=== PATIENT | male | born 1950 | race Caucasian/White ===

== ENCOUNTER 2019-10-14 08:30 | Day surgery (SDC) | payer OTHER ==
[~2019-10-14] VITALS: Ht 170.2 cm; Wt 92.9 kg
[~2019-10-14 08:30] MED LIST: ASPI81TA85 PO; BUPR10TASR PO; FENO145T7 PO; HYDR25TAB PO; IBUP1TAB7 PO; LR 1,000 ML IV SCH; LevoFLOXacin IV 500 MG in IV 1 EA IV ONE; METO50TA7 PO; OMEP1CAP73 PO; PROV108A INH; SIMV40TA20 PO; VITA200012 PO
[2019-10-14] MEDS ORDERED: ONDANSETRON 4MG/2ML VIAL (J2405) As Ordered ONE (10:19)
[2019-10-14] MEDS ORDERED: LIDOCAINE 2% INJ 100 MG/5 ML SDV (FOR ANES.) As Ordered ONE (10:19)
[2019-10-14] MEDS ORDERED: propofoL 200 MG/20 ML VIAL As Ordered ONE (10:19)
[2019-10-14] MEDS ORDERED: fentaNYL 100 MCG/2 ML INJECTION (J3010) As Ordered ONE (10:21)
[2019-10-14] MEDS ORDERED: MIDAZOLAM INJ 2 MG/2 ML VIAL (J2250) As Ordered ONE (10:21)
[2019-10-14] MEDS ORDERED: LIDOCAINE 1% MDV 20ML VIAL As Ordered ONE (12:22)
[2019-10-14] MEDS ORDERED: BACITRACIN OINT 30GM As Ordered ONE (12:22)
[2019-10-14] MEDS ORDERED: ONDANSETRON 4MG/2ML VIAL (J2405) IV PRN (14:00)
[2019-10-14] MEDS ORDERED: LR 1,000 ML IV SCH ×2 (14:00→15:00)
[2019-10-14] MEDS: fentaNYL 100 MCG/2 ML INJECTION (J3010) IV PRN ×4 (14:00→14:15)
[2019-10-14] MEDS ORDERED: PERCOCET 5MG/325MG TAB PO PRN (14:00)
[2019-10-14 14:35] VITALS: BP 144/73
[2019-10-14] MEDS ORDERED: IBUPROFEN 600 MG TAB PO PRN (15:00)
--- NOTE | 2019-10-14 20:21 | RO ---
DATE OF PROCEDURE: 10/14/2019 PREPROCEDURE DIAGNOSIS: Right hydrocele. POSTPROCEDURE DIAGNOSIS: Right hydrocele. PROCEDURE: Right hydrocelectomy. SURGEON: Feliciano Uribe MD MACHINE CHAIN MAKER: None ANESTHESIA: General. ESTIMATED BLOOD LOSS: Less than 10 mL. DRAINS: Raquel. SPECIMEN: Hydrocele sac. DESCRIPTION OF PROCEDURE: The patient was anesthetized with general anesthesia after being placed on the table in the supine position. He was then prepped with Betadine paint and draped in a sterile manner. A time-out was then performed. A #15 scalpel was then used to make a right scrotal incision, which was carried down to the tunica vaginalis. The tunica was from the surrounding tissues with blunt dissection and delivered through the incision. The tunica was then opened and 500 mL of fluid was drained. The excess sac was removed with Bovie cautery, and the edges oversewn with a running #2-0 locking suture. The appendix, testis and appendix epididymis was then removed. The testicle was then delivered back down into the scrotal sac. Hemostasis was achieved with cauterization, and the incision was closed with a running #3-0 chromic suture for the subcutaneous tissues and interlock interrupted #3-0 chromic suture for the skin. A quarter-inch Raquel drain was left in place and secured to the fluff dressing applied to the scrotum. The patient was then awakened and sent to recovery room in stable condition having tolerated the procedure well. MARYANN
== END 2019-10-14 15:25 | disposition home or self-care (01) ==
LOC: M SDC 08:30
PROVIDERS: ATTEND Urology
DX: N43.3 Hydrocele, unspecified (principal); I10 Essential (primary) hypertension; R07.9 Chest pain, unspecified; K21.9 Gastro-esophageal reflux disease without esophagitis; F41.9 Anxiety disorder, unspecified; F32.9 Major depressive disorder, single episode, unspecified; J44.9 Chronic obstructive pulmonary disease, unspecified; Z79.82 Long term (current) use of aspirin; Z79.899 Other long term (current) drug therapy; Z87.891 Personal history of nicotine dependence
CPT/HCPCS: 55040; 88302; J1956; J2250; J2405; J3010